=== PATIENT | male | born 1985 | race Caucasian/White ===

== ENCOUNTER 2022-09-16 11:03 | Emergency (ER) | payer OTHER ==
[~2022-09-16] VITALS: Ht 177.8 cm; Wt 79.4 kg
[2022-09-16 11:17] VITALS: BP 156/99
[2022-09-16] MEDS ORDERED: PRED20 PO (11:23)
[2022-09-16] MEDS ORDERED: DULERA 200 MCG-13 GM INH (11:23)
[2022-09-16] MEDS ORDERED: FLUT1DIS5 INH (11:23)
== END 2022-09-16 11:29 | disposition home or self-care (01) ==
LOC: ER 11:03
DX: L25.5 Unspecified contact dermatitis due to plants, except food (principal); Z76.0 Encounter for issue of repeat prescription
CPT/HCPCS: 99282